=== PATIENT | male | born 1985 | race Caucasian/White ===

== ENCOUNTER 2022-01-08 20:54 | Emergency (ER) | payer SELFPAY ==
[2022-01-08 20:55] VITALS: PULSE 110; RESP 18; TEMP 36.2; O2SAT 97; BMI 29.5
[2022-01-08 21:09] VITALS: BP 191/117; PULSE 103; RESP 32; O2SAT 97
[2022-01-08 21:37] VITALS: BP 172/107; PULSE 106; RESP 22; O2SAT 97
--- NOTE | 2022-01-08 22:10 | EX.ED.SAOD ---
HPI History of Present Illness Chief Complaint: Overdose Narrative Narrative: 36-year-old male presenting after overdose with fentanyl. He believes it was fentanyl that he used. He states he uses inadvertently. He was given Narcan x3 in the field. On arrival he is alert and awake. He states he feels at his baseline. He does not have any complaints. PFS PFS Home Medications NK 01/08/22 [History Last Taken Unknown] Allergy/AdvReac Type Severity Reaction Status Date / Time No Known Allergies Allergy Verified 01/08/22 21:00 Social History Smoking Status: Never smoker ROS ROS ED Constitutional Constitutional ED: Denies chills or fever(s) Eyes Eyes: Denies blurry vision or diplopia ENT ENT ED: Denies rhinorrhea or sore throat Cardiovascular Cardiovascular: Denies chest pain or palpitations Respiratory/Chest Respiratory/Chest: Denies cough or dyspnea Gastrointestinal Gastrointestinal: Denies abdominal pain, nausea or vomiting Genitourinary Genitourinary ED: Denies dysuria or urinary frequency Musculoskeletal Musculoskeletal: Denies arthralgias or myalgias Integumentary Denies rash Neurologic Neurologic: Denies headache(s) or weakness EXAM Physical Exam Const Vital Signs: 01/08/22 20:55 01/08/22 21:09 01/08/22 21:37 Temperature 97.2 F L Temperature Source Oral Pulse Rate 110 H 103 H 106 H Respiratory Rate 18 32 H 22 H Blood Pressure 191/117 H 172/107 H Blood Pressure Mean 141 128 Pulse Ox 97 97 97 Oxygen Delivery Method Room Air Room Air Room Air 01/08/22 22:19 Temperature Temperature Source Pulse Rate 104 H Respiratory Rate 16 Blood Pressure Blood Pressure Mean Pulse Ox 96 Oxygen Delivery Method Room Air Positive well nourished General Appearance ED: NAD HEENT Reports moist mucous membranes atraumatic Eyes PERRL and EOMs intact bilaterally Chest Wall inspection of chest normal Resp normal respiratory effort and clear to auscultation bilaterally Cardio regular rhythm Rate: tachycardic GI soft to palpation Extremity General Extremety ED: Negative for edema or tenderness General Extremity: Negative for edema Neuro oriented x3 Sensorium / Orientation: alert Psych mental status grossly normal and thought process normal Skin Lesions: no lesions Rashes: no rashes MDM MDM MDM Narrative Medical decision making narrative: Patient has no complaints. He states he feels otherwise well. He states he had apparently overdosed on fentanyl. Patient states that he just wants to lay here for a little while. He will be observed. Patient reevaluated at 1115 and is doing well. I do not think he needs any further evaluation. He has not needed any Narcan. Impression: 1. Drug overdose Discharge Plan Triage Chief Complaint: Overdose ED Provider: Taran Hsu Dx/Rx/DC Orders Clinical Impression: Accidental overdose Instructions: ED Drug Abuse Prescriptions: No Action NK RF: 0 Primary Care Provider: Care Physician,No Primary Referrals: Karen Ramirez MD [STAFF PHYSICIAN] - 3-5 Days Care Physician,No Primary [Primary Care Provider] - Disposition Disposition: Home, Self Care
[2022-01-08 22:19] VITALS: PULSE 104; RESP 16; O2SAT 96
== END 2022-01-08 23:35 | disposition home or self-care (01) ==
PROVIDERS: Emergency Provider Student in an Organized Health Care Education/Training Program; Visit Provider Student in an Organized Health Care Education/Training Program
DX: T40.414A Poisoning by fentanyl or fentanyl analogs, undetermined, initial encounter (principal); Y92.9 Unspecified place or not applicable
CPT/HCPCS: 99285